=== PATIENT | male | born 1930 | race Caucasian/White ===

== ENCOUNTER 2016-11-18 21:35 | Emergency (ER) | payer MEDICARE, OTHER ==
--- OUTSIDE RECORDS SUMMARY | 2016-11-18 22:33 | XMS REPORT | Continuity of Care Document ---
:1930 Author Organization [facility] ([facility]) Address [address] [place] [address] Phone [phone] Care Team Providers Name Role Phone Unavailable Primary Care Provider Unavailable Source Comments This disclosure is being made pursuant to the Care Everywhere program, applicable federal and state laws, and may not contain all informaitonavailable regarding this patient.[facility] ([facility]) Active Allergies and Adverse Reactions Not on File Current Medications Not on file Active Problems Not on file Social History Tobacco Use Types Packs/Day Years Used Date Never Assessed Plan of Care Health Maintenance Due Date Last Done Comments Hepatitis B Vaccine (1 of 3 - Primary Series) 1930 Tdap Vaccine 1940 Lipid Disorder Screening 12/01/1947 Td Vaccine 12/01/1947 Zoster Vaccine 1989 Pneumococcal Vaccine (1 of 2 - PCV13) 1994 Influenza Vaccine: Seasonal (#1) 04/10/2016 Results from Last 3 Months Not on file
--- OUTSIDE RECORDS SUMMARY | 2016-11-18 22:33 | XMS REPORT | Summary of Care ---
:1930 Author Organization [facility] Address [address] [place] [address] Care Team Providers Name Role Phone Michael Lora Jayesh Primary Care Physician Encounter Date(s): 09/26/16 - 09/26/16 [facility], [address] [place], [place] [address] Discharge Disposition: 01 Discharged to Home or Self Care Attending Physician: Zac Khan MD Referring Physician: Zac Khan MD Vital Signs Most recent to oldest [Reference Range]: 1 Blood Pressure [90-130/60-90 mmHg] 112/60mmHg (09/26/16 8:52 AM) Mean Arterial Pressure, Cuff 77 mmHg (09/26/16 8:52 AM) Height/Length Measured 174 cm (09/26/16 8:52 AM) Weight Dosing 85.50 kg1 (09/26/16 8:53 AM) Weight Measured 85.5 kg (09/26/16 8:52 AM) BSA Measured 2 m2 (09/26/16 8:52 AM) Body Mass Index Measured 28.24 kg/m2 (09/26/16 8:52 AM) 1Result Comment: This result was because the dosing weight was either not entered or it is>30 days old. 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(Confirmed) CA - Cancer of prostate(Confirmed) Active Carotid artery stenosis(Confirmed)1 Active Cellulitis of left forearm(Confirmed) Active Chronic kidney disease, stage 4 Active (severe)(Confirmed) Coronary artery disease Active (CAD)(Confirmed)2 DM - Diabetes mellitus(Confirmed) Active Hyperlipidemia(Confirmed) Active Hypertension(Confirmed) Active Mobitz type I incomplete Active atrioventricular block(Confirmed) Secondary Active hyperparathyroidism(Confirmed) 1Totally occluded left carotid [id number]/P CABG Allergies, Adverse Reactions, Alerts Substance Reaction Severity Status codeine Upset [id number] 19:18:11<$> Active Dizziness ibuprofen upset stomach Active Medications aspirin 325 mg oral tablet 1 tab(s), Oral, Daily, # 30 tab(s), 0 Refill(s) Start Date: 04/10/14 Status: Orderedcalcitriol 0.25 mcg oral capsule 1 cap(s), Oral, MonWedFri, 0 Refill(s), Start Date: 04/14/16 8:27:00 CDT Start Date: 04/14/16 Stop Date: 08/08/16 Status: Completedcalcium acetate 1,334 mg, Oral, TIDMEALS, 0 Refill(s), Start Date: 08/15/16 10:24:00 NANOFABRICATION SPECIALIST Start Date: 08/15/16 Status: Orderedcalcium acetate 667 mg oral tablet 2 tab(s), Oral, TID, # 270 tab(s), 0 Refill(s) Start Date: 04/10/14 Stop Date: 08/15/16 Status: DiscontinuedCipro 500 mg oral tablet 1 tab(s), Oral, q24hr interval, # 7 tab(s), 0 Refill(s), Start Date: 05/29/16 11 :25:00 CDT, Pharmacy: [facility] [id number] Start Date: 05/29/16 Stop Date: 07/04/16 Status: Completedclindamycin 300 mg oral capsule 1 cap(s), Oral, TID, # 15 cap(s), 0 Refill(s), Start Date: 08/16/16 10:05:00 NANOFABRICATION SPECIALIST , Pharmacy: [facility] [id number] Start Date: 08/16/16 Stop Date: 09/12/16 Status: CompletedCulturelle Digestive Health oral capsule 2 cap(s), Oral, Daily, 0 Refill(s), Start Date: 08/15/16 10:14:00 NANOFABRICATION SPECIALIST Start Date: 08/15/16 Status: OrderedDialyvite Rx 1 tab(s), Oral, Daily, Start Date: 08/22/16 10:20:00 NANOFABRICATION SPECIALIST Start Date: 08/22/16 Status: OrderedDialyvite Rx tab(s), Oral, qPM, 0 Refill(s), Start Date: 08/08/16 10:41:00 NANOFABRICATION SPECIALIST Start Date: 08/08/16 Stop Date: 08/16/16 Status: Discontinuedfamotidine 20 mg, HS, Start Date: 03/24/16 10:52:00 CDT Start Date: 03/24/16 Status: Orderedferrous sulfate 325 mg (65 mg elemental iron) oral delayed release tablet 1 tab(s), Oral, Daily, Start Date: 04/10/14 7:17:00 CDT Start Date: 04/10/14 Status: Orderedfinasteride 5 mg oral tablet 1 tab(s), Oral, Daily, At bedtime, # 30 tab(s), 0 Refill(s) Start Date: 04/10/14 Stop Date: 04/30/14 Status: Discontinuedfinasteride 5 mg oral tablet 1 tab(s), Oral, Daily, At bedtime, # 30 tab(s), 11 Refill(s), Start Date: 15:55:00 CDT, Pharmacy: [facility] [id number] Start Date: 04/30/14 Stop Date: 04/06/15 Status: Completedfinasteride 5 mg oral tablet 1 tab(s), Oral, Daily, At bedtime, # 30 tab(s), 11 Refill(s), Start Date: 11:01:00 CDT, Pharmacy: [facility] [id number] Start Date: 04/06/15 Stop Date: 03/08/16 Status: Completedfinasteride 5 mg oral tablet 1 tab(s), Oral, Daily, At bedtime, # 30 tab(s), 11 Refill(s), Start Date: 8:23:15 CDT, Pharmacy: [facility] [id number] Start Date: 03/08/16 Stop Date: 09/12/16 Status: Discontinuedfurosemide 40 mg oral tablet 2 tab(s), Oral, BID, 0 Refill(s), Start Date: 04/10/14 7:16:00 CDT Start Date: 04/10/14 Status: OrderedglipiZIDE 2.5 mg oral tablet, extended release 1 tab(s), Oral, BID, # 30 tab(s), 0 Refill(s), Start Date: 08/15/16 10:23:00 NANOFABRICATION SPECIALIST Start Date: 08/15/16 Status: OrderedglipiZIDE 2.5 mg oral tablet, extended release 1 tab(s), Oral, Daily, # 30 tab(s), 0 Refill(s), Start Date: 08/15/16 10:19:00 NANOFABRICATION SPECIALIST Start Date: 08/15/16 Stop Date: 08/15/16 Status: DiscontinuedglipiZIDE 5 mg oral tablet take 1.5 Tablet (7.5MG) by oral route 2 times every day before meals, 0 Refill(s ) Start Date: 04/10/14 Stop Date: 08/15/16 Status: DiscontinuedhydrALAZINE 50 mg oral tablet 1 tab(s), Oral, BID, # 60 tab(s), 0 Refill(s) Start Date: 04/10/14 Stop Date: 08/08/16 Status: CompletedHYDROcodone-acetaminophen 5mg-325mg oral tablet 2 tab(s), Oral, q4hr, PRN for pain, # 30 tab(s), 0 Refill(s), Start Date: 9:15:00 NANOFABRICATION SPECIALIST, Pharmacy: [facility] [id number] Start Date: 08/12/16 Status: Orderedisosorbide mononitrate 60 mg oral tablet, extended release .5 tablets, Oral, qAM, 0 Refill(s), Start Date: 04/10/14 7:15:00 CDT Start Date: 04/10/14 Stop Date: 09/12/16 Status: Discontinuedlevothyroxine 100 mcg, Oral, Daily, 0 Refill(s), Start Date: 08/15/16 10:15:00 NANOFABRICATION SPECIALIST Start Date: 08/15/16 Status: Orderedlevothyroxine 50 mcg (0.05 mg) oral tablet 1 tab(s), Oral, Daily, 0 Refill(s), Start Date: 04/14/16 8:26:00 CDT Start Date: 04/14/16 Stop Date: 08/15/16 Status: Discontinuedlevothyroxine 75 mcg (0.075 mg) oral capsule 1 cap(s), Oral, Daily, # 30 cap(s), 0 Refill(s) Start Date: 04/10/14 Stop Date: 04/14/16 Status: Completedlinezolid 600 mg oral tablet 1 tab(s), Oral, q12hr, # 10 tab(s), 0 Refill(s), Start Date: 08/16/16 9:56:00 NANOFABRICATION SPECIALIST, Pharmacy: [facility] [id number] Start Date: 08/16/16 Stop Date: 08/16/16 Status: Discontinuedmetoprolol succinate 25 mg oral tablet, extended release 0.5 tab(s), Oral, Daily, take 0.5 tablet (12.5MG) by ORAL route every day, 0 Refill(s) Start Date: 04/10/14 Stop Date: 08/08/16 Status: Completedmultivitamin 1 tab, Oral, Daily, 0 Refill(s), Start Date: 04/10/14 7:13:00 CDT Start Date: 04/10/14 Stop Date: 08/16/16 Status: DiscontinuedProcrit 40,000 units/mL preservative-free injectable solution See Instructions, Every 2 weeks, 0 Refill(s), Start Date: 04/14/16 8:25:00 CDT Start Date: 04/14/16 Status: Orderedsimvastatin 20 mg oral tablet 1 tab(s), Oral, HS, # 30 tab(s), 0 Refill(s), Start Date: 08/15/16 10:17:00 NANOFABRICATION SPECIALIST Start Date: 08/15/16 Status: Orderedsimvastatin 40 mg oral tablet 1 tab(s), Oral, HS, # 30 tab(s), 0 Refill(s) Start Date: 04/10/14 Stop Date: 08/15/16 Status: Discontinuedterazosin 2 mg oral capsule 1 cap(s), Oral, HS, # 30 cap(s), 0 Refill(s) Start Date: 04/10/14 Stop Date: 08/08/16 Status: Completedterazosin 2 mg oral capsule 1 cap(s), Oral, HS, # 30 cap(s), 0 Refill(s), Start Date: 08/15/16 10:29:00 NANOFABRICATION SPECIALIST Start Date: 08/15/16 Stop Date: 09/12/16 Status: DiscontinuedtraMADol 50 mg oral tablet 1 tab(s), Oral, q6hr interval, PRN for pain, # 60 tab(s), 0 Refill(s), Start Date: 08/15/16 10:15:00 NANOFABRICATION SPECIALIST Start Date: 08/15/16 Stop Date: 08/16/16 Status: DiscontinuedVitamin B12 500 mcg oral tablet 2 tab(s), Oral, Daily, # 30 tab(s), 0 Refill(s), Start Date: 04/10/14 7:13:00 CDT Start Date: 04/10/14 Status: OrderedVitamin D2 50,000 intl units (1.25 mg) oral capsule 1 cap(s), Oral, monthly, # 24 cap(s), 0 Refill(s), Start Date: 04/10/14 7:18:00 CDT Start Date: 04/10/14 Status: Ordered Results No data available for this section Immunizations Given and Recorded Vaccine Date Status Refusal Reason influenza virus vaccine, inactivated 06/20/16 Recorded pneumococcal 23-polyvalent vaccine 11/04/14 Recorded Procedures Procedure Date Related Diagnosis Body Site Insertion Arterial Venous Fistula/Shunt (Left)1 08/10/16 Insertion Arterial Venous Fistula/Shunt (Left, 04/17/16 Arm L)2 CABG - Coronary artery bypass graft3 1996 Amputation of finger4 Cardiac catheterization Carpal tunnel release Cataract extraction Cholecystectomy Hernia repair5 temporary dialysis catheter right chest 1auto-populated from documented surgical [id number] from documented surgical case33 vessel - [id number] middle [id number] Social History No data available for this section Assessment and Plan No data available for this section
--- OUTSIDE RECORDS SUMMARY | 2016-11-18 22:34 | XMS REPORT | CCD ---
:1930 Author Name JOHANA SANCHEZ Address [address] [place]available [place], [place] [id number] Care Team Providers Name Role Phone RYAN DUBON Attending Physician Unavailable Vital Signs Unknown or Not Available. Allergies Unknown or Not Available. Procedures Unknown or Not Available. History of Immunizations Unknown or Not Available. Problems Unknown or Not Available. Results Unknown or Not Available. Medications Unknown or Not Available. Medications Administered Unknown or Not Available. Encounters Encounter Diagnosis Diagnosis Code Start Date URINARY FREQUENCY [id number] 03/19/2014 Social History Unknown or Not Available. Patient Decision Aids Unknown or Not Available. Discharge Instructions You were admitted to [facility] on 03/19/2014 with a principal diagnosis of URINARY FREQUENCY. You were discharged from [facility] on 03/19/2014. Should you have any questions prior to discharge, please contact a member of your healthcare team. If you have left the hospital and have any questions, please contact your primary care physician. Chief Complaint and Reason For Visit Unknown or Not Available. Function Status Unknown or Not Available. Plan of Care Diagnostic Test Pending Plan of Care Pending Diagnostic Test CULTURE URINE, [INC: 630-4], 03/19/2014 Referral/Transition of Care Unknown or Not Available.
--- OUTSIDE RECORDS SUMMARY | 2016-11-18 22:34 | XMS REPORT | Summary of Care ---
:1930 Author Organization [facility] Address [address] [place] [id number]- Care Team Providers Name Role Phone Michael Lora Jayesh Primary Care Physician Encounter Date(s): 08/18/16 - 10/02/[address] [address] Discharge Disposition: 01 Discharged to Home or Self Care Attending Physician: Zac Khan MD Admitting Physician: Zac Khan MD Vital Signs No data available for this section Problem List Condition Effective Dates Status Health [...] Secondary Active hyperparathyroidism(Confirmed) 1Totally occluded left carotid [id number]/P CABG Allergies, Adverse Reactions, Alerts Substance Reaction Severity Status codeine Upset [id number] 19:18:11<$> Active Dizziness ibuprofen upset stomach Active Medications aspirin 325 mg oral tablet 1 tab(s), Oral, Daily, # 30 tab(s), 0 Refill(s) Start Date: 04/10/14 Status: Orderedcalcitriol 0.25 mcg oral capsule 1 cap(s), Oral, MonWedFri, 0 Refill(s), Start Date: 04/14/16 8:27:00 CDT Start Date: 04/14/16 Stop Date: 08/08/16 Status: Completedcalcium acetate 1,334 mg, Oral, TIDMEALS, 0 Refill(s), Start Date: 08/15/16 10:24:00 ELECTRONIC DEVELOPMENT TECHNICIAN Start Date: 08/15/16 Status: Orderedcalcium acetate 667 mg oral tablet 2 tab(s), Oral, TID, # 270 tab(s), 0 Refill(s) Start Date: 04/10/14 Stop Date: 08/15/16 Status: DiscontinuedCipro 500 mg oral tablet 1 tab(s), Oral, q24hr interval, # 7 tab(s), 0 Refill(s), Start Date: 05/29/16 11 :25:00 CDT, Pharmacy: [facility] [id number] Start Date: 05/29/16 Stop Date: 07/04/16 Status: Completedclindamycin 300 mg oral capsule 1 cap(s), Oral, TID, # 15 cap(s), 0 Refill(s), Start Date: 08/16/16 10:05:00 ELECTRONIC DEVELOPMENT TECHNICIAN , Pharmacy: [facility] [id number] Start Date: 08/16/16 Stop Date: 09/12/16 Status: CompletedCulturelle [facility]estive [facility] oral capsule 2 cap(s), Oral, Daily, 0 Refill(s), Start Date: 08/15/16 10:14:00 ELECTRONIC DEVELOPMENT TECHNICIAN Start Date: 08/15/16 Status: OrderedDialyvite Rx 1 tab(s), Oral, Daily, Start Date: 08/22/16 10:20:00 ELECTRONIC DEVELOPMENT TECHNICIAN Start Date: 08/22/16 Status: OrderedDialyvite Rx tab(s), Oral, qPM, 0 Refill(s), Start Date: 08/08/16 10:41:00 ELECTRONIC DEVELOPMENT TECHNICIAN Start Date: 08/08/16 Stop Date: 08/16/16 Status: [...] 11 Refill(s), Start Date: 15:55:00 CDT, Pharmacy: [facility] [id number] Start Date: 04/30/14 Stop Date: 04/06/15 Status: Completedfinasteride 5 mg oral tablet 1 tab(s), Oral, Daily, At bedtime, # 30 tab(s), 11 Refill(s), Start Date: 11:01:00 CDT, Pharmacy: [facility] [id number] Start Date: 04/06/15 Stop Date: 03/08/16 Status: Completedfinasteride 5 mg oral tablet 1 tab(s), Oral, Daily, At bedtime, # 30 tab(s), 11 Refill(s), Start Date: 8:23:15 CDT, Pharmacy: [facility] [id number] Start Date: 03/08/16 Stop Date: 09/12/16 Status: Discontinuedfurosemide 40 mg oral tablet 2 tab(s), Oral, BID, 0 Refill(s), Start Date: 04/10/14 7:16:00 CDT Start Date: 04/10/14 Status: OrderedglipiZIDE 2.5 mg oral tablet, extended release 1 tab(s), Oral, BID, # 30 tab(s), 0 Refill(s), Start Date: 08/15/16 10:23:00 ELECTRONIC DEVELOPMENT TECHNICIAN Start Date: 08/15/16 Status: OrderedglipiZIDE 2.5 mg oral tablet, extended release 1 tab(s), Oral, Daily, # 30 tab(s), 0 Refill(s), Start Date: 08/15/16 10:19:00 ELECTRONIC DEVELOPMENT TECHNICIAN Start Date: 08/15/16 Stop Date: 08/15/16 Status: [...] 30 tab(s), 0 Refill(s), Start Date: 9:15:00 ELECTRONIC DEVELOPMENT TECHNICIAN, Pharmacy: [facility] [id number] Start Date: 08/12/16 Status: Orderedisosorbide mononitrate 60 mg oral tablet, extended release .5 tablets, Oral, qAM, 0 Refill(s), Start Date: 04/10/14 7:15:00 CDT Start Date: 04/10/14 Stop Date: 09/12/16 Status: Discontinuedlevothyroxine 100 mcg, Oral, Daily, 0 Refill(s), Start Date: 08/15/16 10:15:00 ELECTRONIC DEVELOPMENT TECHNICIAN Start Date: 08/15/16 Status: Orderedlevothyroxine 50 mcg [...] tab(s), 0 Refill(s), Start Date: 08/16/16 9:56:00 ELECTRONIC DEVELOPMENT TECHNICIAN, Pharmacy: [facility] [id number] Start Date: 08/16/16 Stop Date: 08/16/16 Status: [...] tab(s), 0 Refill(s), Start Date: 08/15/16 10:17:00 ELECTRONIC DEVELOPMENT TECHNICIAN Start Date: 08/15/16 Status: Orderedsimvastatin 40 mg [...] cap(s), 0 Refill(s), Start Date: 08/15/16 10:29:00 ELECTRONIC DEVELOPMENT TECHNICIAN Start Date: 08/15/16 Stop Date: 09/12/16 Status: DiscontinuedtraMADol 50 mg oral tablet 1 tab(s), Oral, q6hr interval, PRN for pain, # 60 tab(s), 0 Refill(s), Start Date: 08/15/16 10:15:00 ELECTRONIC DEVELOPMENT TECHNICIAN Start Date: 08/15/16 Stop Date: 08/16/16 Status: [...] catheter right chest 1auto-populated from documented surgical [id number] from documented surgical case33 vessel - [id number] middle [id number] Social History No data available for this section Assessment and Plan No data available for this section
--- NOTE | 2016-11-18 22:37 | ERNOTE ---
Trauma/Assault HPI - Narrative Date of Service: 11/18/16 - General Stated Complaint: FALL 11/17/16. STIFF LEGS Time Seen by Provider: 11/18/16 22:20 Source: patient, family - Immun/Allergies/Home Medications Immunizations: IMMUNIZATION HX Immunizations Up to Date Yes History of Influenza Vaccine Yes Hx Pneumococcal Vaccination Yes Allergies/Adverse Reactions: Allergies codeine [Codeine] Allergy (Unknown, Verified 11/18/16 21:54) ibuprofen Allergy (Unknown, Verified 11/18/16 21:54) morphine Allergy (Unknown, Verified 11/18/16 21:54) Home Medications: HOME MEDICATIONS Cholecalciferol (Vitamin D3) [Vitamin D3] 1,000 unit PO 3XW 06/15/16 [Last Taken Unknown] Nitroglycerin 0.4 mg SL PRN PRN 06/15/16 [Last Taken Unknown] Calc/D3/Mag/Zn/Mechanical Systems Designer/Joey/[place] [Calcium 600 mg Plus Vit D Tab] 1 each PO DAILY [Last Taken Unknown] HYDROcodone/ACETAMINOPHEN [Bradley 5-325] 1 - 2 tab PO Q6H PRN 11/18/16 [Last Taken 11/18/16 20:00] Lisinopril/Hydrochlorothiazide [Lisinopril-Hctz 20-12.5 mg Tab] 1 each PO DAILY 11/18/16 [Last Taken Unknown] Loratadine [Claritin] 10 mg PO DAILY 11/18/16 [Last Taken Unknown] Lovastatin [Altoprev] 20 mg PO DAILY 11/18/16 [Last Taken Unknown] Metoprolol Tartrate [Lopressor] 50 mg PO BID 11/18/16 [Last Taken Unknown] - History of Present Illness Narrative: pt fell yesterday and spouse states "he may have passed out" but they did not come in till 24 hours later. He has had some back pain all day today. also he has gotten his dialysis and denies any fevers or chills. He is here for back pain and feels weak Review of Systems - Review of Systems Constitutional: Present: See HPI EYE: Present: no symptoms reported ENT: Present: no symptoms reported Respiratory: Present: no symptoms reported Cardiology: Present: no symptoms reported Gastrointestinal/Abdominal: Present: no symptoms reported Genitourinary: Present: no symptoms reported Musculoskeletal: Present: See HPI - Patient's Past Medical History Patient History - Medical: Anemia, Diabetes Type 2, Renal Disease, Other Patient History - Cardiac/Respiratory: No pertinent hx Patient History - Cancer: Prostate Patient History - Surgical Procedures: Cataracts, Cholecystectomy, Colonoscopy, Coronary Bypass Surgery, Other Patient History - Other: None - Family History Mother Family History - Medical: , History Unknown Father Family History - Medical: Family History - Cardiac/Respiratory: Myocardial Infarction - Social History Living Situations: home - with spouse Abuse History: No History of abuse Psych History: No pertinent hx Smoking Status: Never smoker Alcohol Use: none Drug Use: none - Immunizations Immunizations Up to Date: Yes Hx Pneumococcal Vaccination: Yes History of Influenza Vaccine: Yes Physical Exam - Physical Exam General Appearance: Present: wd/wn, alert, no apparent distress Ears, Nose, Throat: Present: normal ENT inspection Neck: Present: normal inspection, nontender Respiratory: Present: no respiratory distress, normal breath sounds, no accessory muscle use, chest nontender, lungs clear Cardiovascular/Chest: Present: regular rate, rhythm, no murmur Back Exam: Present: other - he has pain upon palpation of the lumbar region of his back. no radiation. DTRs intact. Extremity Exam: Present: other - missing left middle digit Neurological Exam: Present: alert, oriented, normal mood/affect, no motor/ sensory deficits ED Progress - Vital Signs Patient's Vital Signs:: I have reviewed the patient's vital signs. Vital Signs: Vital Signs 11/18/16 21:48 Temperature 36.6 C Pulse Rate 55 L Respiratory 18 Rate Blood Pressure 121/42 O2 Sat by Pulse 95 Oximetry - X-Ray X-Ray #1 X-Ray: lumbosacral - CT/Ultrasound CT/Ultrasound Narrative: negative - Progress/Reassessment Chief Complaint: Fall Plan - Plan Plan: CT of head is negative , pt's lumbosacral Xray is negative for fx. His pain has resolved as he took two Bradley's earlier. He is stable for discharge Departure Clinical Impression: Low back pain Qualifiers: Chronicity: acute Back pain laterality: midline Sciatica presence: without sciatica Qualified Code(s): M54.5 - Low back pain - Departure Disposition: Home self-care Condition: Good Instructions: Facet Syndrome, Back Pain, Adult Referrals: Michael Lora DO [Primary Care Provider] -
[2016-11-19 00:04] VITALS: BP 118/68
== END 2016-11-19 00:03 | disposition home or self-care (01) ==
LOC: ER 21:35
DX: M54.5 Low back pain (principal); W19.XXXA Unspecified fall, initial encounter; Z91.81 History of falling; Y93.9 Activity, unspecified; Y92.9 Unspecified place or not applicable; Y99.9 Unspecified external cause status; E11.9 Type 2 diabetes mellitus without complications; Z85.46 Personal history of malignant neoplasm of prostate